=== PATIENT | female | born 1950 | race Caucasian/White ===

== ENCOUNTER 2017-03-23 05:21 | Inpatient (IN) | payer OTHER, BC ==
[2017-02-23 14:33] VITALS: BMI 36.0
[2017-02-23 15:01] LABS: MEAN CORPUSCULAR HGB CONC 34.5 g/dl (32-36); PTT PATIENT 23.6 SECONDS (21.0-31.0)
--- NOTE | 2017-02-23 15:03 | PAT Medication Instructions ---
Service Date Feb 23, 2017. Current Home Medication List Aspirin (Aspirin Ec), 81 MG PO QAM Calcium Carbonate-Cholecalcife (Caltrate 600+D), 1 TAB PO QAM Naproxen (Aleve), 2 MG PO UD PRN for PRN Pravastatin (Pravachol ), 20 MG PO QAM Medication Instructions For Your Scheduled Surgery - Hold the following medications 1week prior to surgery per surgeon's instructions: Naproxen (Aleve), 2 MG PO UD PRN for PRN - Hold the following medications the morning of surgery: Calcium Carbonate-Cholecalcife (Caltrate 600+D), 1 TAB PO QAM - Take the following medications the morning of surgery with a sip of water OTHERWISE NOTHING TO EAT OR DRINK AFTER MIDNIGHT: Pravastatin (Pravachol ), 20 MG PO QAM Aspirin (Aspirin Ec), 81 MG PO QAM If you have any questions please call us at [phone] or [phone] or [phone]
[2017-02-23 15:22] LABS: HEMATOCRIT 42.3 % (37-47); HEMOGLOBIN 14.6 g/dL (12.0-16.0); MEAN CELL VOLUME 86.3 fL (80-100); MEAN CORPUSCULAR HEMOGLOBIN 29.8 pg (25-34); MEAN PLATELET VOLUME 9.7 fL (7.4-10.4); PLATELET COUNT 226 K/uL (130-400); RED CELL DISTRIBUTION WIDTH CV 13.5 % (11.5-14.5); RED CELL DISTRIBUTION WIDTH SD 42.6 fL (36.4-46.3); WHITE BLOOD COUNT 8.71 K/uL (4.8-10.8)
[2017-02-23 15:23] LABS: BASO % 0.6 %; BASO ABS # 0.05 K/uL (0-0.2); EOS ABS # 0.35 K/uL (0-0.5); IG# 0.04 K/uL (0.00-0.02); LYMPH % 23.5 %; LYMPH ABS # 2.05 K/uL (1.2-3.4); MONO % 5.1 %; MONO ABS # 0.44 K/uL (0.11-0.59); NEUT % 66.3 %; NEUT ABS # 5.78 K/uL (1.4-6.5)
--- NOTE | 2017-02-23 15:26 | DIAGNOSTIC IMAGING REPORT ---
CHEST 2 VIEWS ROUTINE HISTORY: 66 years-old Female PAT preoperative exam. No acute chest complaints. COMPARISON: None available TECHNIQUE: PA and lateral views of the chest FINDINGS: Cardiomediastinal and hilar silhouettes are within normal limits. No pneumothorax, pleural effusion, focal airspace consolidation or overt pulmonary edema. Bones of the chest are grossly intact. Degenerative changes are seen within the bilateral shoulders and also within the spine. IMPRESSION: No acute cardiopulmonary process. The above report was generated using voice recognition software. It may contain grammatical, syntax or spelling errors. Electronically signed by: Ankur Holbrook M.D. 02/23/2017 3:25 PM Dictated Date/Time: 02/23/2017 3:24 PM
[2017-02-24 07:00] LABS: HEMOGLOBIN A1C 5.9 % (4.5-5.6)
--- NOTE | 2017-02-25 10:27 | HISTORY & PHYSICAL EXAMINATION ---
DATE OF ADMISSION: 03/23/2017 CHIEF COMPLAINT: Left knee pain. HISTORY OF PRESENT ILLNESS: Dagmar is a 66-year-old female with a 2-year history of left knee pain. The patient rates her pain an 8/10. She has pain with her daily activities. She has limited standing and walking tolerance. Pain is worse with weightbearing. The patient has had injections and NSAIDs over the years with minimal relief. She has failed conservative treatment and is scheduled for left knee replacement. PAST MEDICAL HISTORY: Hypercholesterolemia. She denies heart disease, diabetes or DVT. PAST SURGICAL HISTORY: Bilateral carpal tunnel release in the 90s, right knee arthroscopy. SOCIAL HISTORY: The patient denies alcohol or tobacco use. She lives in a single story home. 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 FAMILY HISTORY: Negative for DVT. MEDICATIONS: Pravastatin 20 mg, aspirin 81 mg, Caltrate 600 +D and Aleve p.r.n. ALLERGIES: None. REVIEW OF SYSTEMS: See HPI. Ten other systems reviewed, all negative. PHYSICAL EXAMINATION: VITAL SIGNS: Height 5 foot 8, weight 204 pounds. BMI is 40. GENERAL: This is a well-developed, well-nourished female who is alert and oriented x3. Mood and affect are appropriate. HEAD, EYES, EARS, NOSE, AND THROAT: Normocephalic, atraumatic. Mucous membranes are moist and intact. NECK: Supple without lymphadenopathy. HEART: Regular rate and rhythm without murmurs, rubs or gallops. LUNGS: Clear to auscultation without wheezes or rhonchi. ABDOMEN: Soft and nontender. Bowel sounds are equal and active. EXTREMITIES: No ecchymosis, redness or warmth. She has some varicosities over the anterior tibia. She has neutral alignment, minimal effusion is noted. Range of motion is from 0-115 degrees with +1 laxity. She is neurovascularly intact with +5/5 strength. X-RAY EXAMINATION: AP and lateral views show joint space narrowing and osteophyte formation. IMPRESSION: Degenerative joint disease, left knee. PLAN: The patient will be admitted for a left total knee arthroplasty. We will plan on aspirin for DVT prophylaxis. The patient is going to have [facility] for home physical therapy. Her PCP is Dr. Devi.
[~2017-03-23] VITALS: Ht 157.5 cm; Wt 91.0 kg
[2017-03-23] VITALS (9 sets, daily range): BP systolic 96–179; BP diastolic 56–90; PULSE 52–76; TEMP 36.4–37.1; O2SAT 95–98; Ht 157.5 cm; Wt 91.0 kg
[~2017-03-23 05:21] MED LIST: ASPI81TA28 PO; CALC-354 PO; NAPR1TAB9 PO; PRAV20TA PO
[2017-03-23] MEDS ORDERED: FAMOTIDINE 20 MG TAB PO SCH (06:00)
[2017-03-23] MEDS ORDERED: DEXAMETHASONE 4 MG TAB PO SCH (06:00)
[2017-03-23] MEDS ORDERED: LACTATED RINGER'S 1000ML 1,000 ML IV SCH (06:00)
[2017-03-23] MEDS ORDERED: CEFAZOLIN 2000MG IV PUSH 10 ML IV SCH (06:00)
[2017-03-23] MEDS ORDERED: METOCLOPRAMIDE HCL 10 MG TAB PO SCH (06:00)
[2017-03-23] MEDS ORDERED: CeleBREX 200 MG CAP PO SCH (06:00)
[2017-03-23] MEDS ORDERED: LACTATED RINGER'S 1000ML 500 ML IV SCH (06:00)
[2017-03-23] MEDS ORDERED: ROPIVACAINE 5MG/ML 30 ML 150 MG, BUPIVACAINE 0.5% MPF INJ 30 ML, EpINEphrine HCL INJ 0.... INFIL SCH ×8 (06:00)
[2017-03-23] MEDS ORDERED: GABAPENTIN 300 MG CAP PO SCH (06:00)
[2017-03-23] MEDS ORDERED: LACTATED RINGER'S 1000ML IV SCH (06:00)
[2017-03-23] MEDS ORDERED: ACETAMINOPHEN 500 MG TAB PO SCH (06:00)
[2017-03-23] MEDS ORDERED: BUPIVACAINE 0.25% 30 ML VIAL ONE (06:17)
[2017-03-23] MEDS ORDERED: BUPIVACAINE 0.5 % 5 MG/1 ML PF 10ML VIAL ONE (06:17)
[2017-03-23] MEDS: TRANEXAMIC ACID INJ 1,000 MG in SYRINGE 0 ML IV SCH ×2 (06:30→07:00)
[2017-03-23] MEDS ORDERED: MIDAZOLAM HCL 1 MG/ML 2ML VIAL ONE (06:50)
[2017-03-23] MEDS ORDERED: PROPOFOL IV EMULSION 10 MG/ML 20 ML VIAL IV ONE (06:52)
[2017-03-23] MEDS ORDERED: ONDANSETRON INJ 2 MG/ML 2 ML VIAL ONE (06:52)
[2017-03-23] MEDS ORDERED: LIDOCAINE HCL 2% 2 ML VIAL (20MG/ML) ONE (06:52)
[2017-03-23] MEDS ORDERED: FENTANYL CITRATE INJ 50 MCG/1 ML 2 ML VIAL ONE (06:52)
[2017-03-23] MEDS ORDERED: ORTHO JOINT ANESTHETIC ONE (06:58)
[2017-03-23] MEDS ORDERED: POVIDONE-IODINE OP SOLN 30 ML BTL ONE (06:59)
[2017-03-23] MEDS ORDERED: BACITRACIN 50000 UNIT VIAL ONE (06:59)
[2017-03-23] MEDS ORDERED: ONDANSETRON INJ 2 MG/ML 2 ML VIAL IV PRN ×2 (07:00→09:15)
[2017-03-23] MEDS ORDERED: EpHEDrine SULFATE INJ 50 MG/ML AMP IV PRN (07:00)
[2017-03-23] MEDS ORDERED: ATROPINE SULFATE 0.1 MG/ML 5ML SYR IV PRN (07:00)
--- NOTE | 2017-03-23 07:13 | History & Physical Bridge Note ---
H&P Re-Evaluation Bridge Note: I have examined the patient, reviewed the History & Physical and in the interval since the performance of the History & Physical I have noted the following changes of clinical significance: No changes noted
--- NOTE | 2017-03-23 08:23 | [facility] Operative Report ---
Operative Report Operative Date Mar 23, 2017. Pre-Operative Diagnosis left knee degenerative joint disease Post-Operative Diagnosis same as pre-operative Procedure(s) Performed Left Total Knee Arthroplasty-cemented utilizing Baum & Nephew journey 2 patient matched total knee arthroplasty size 4 femur 3 tibia 11 Lucy [address] 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 X-rays reveal subchondral sclerosis cystic changes marginal osteophytes joint space loss Specimens Permanent Specime A) Left knee bone and tissue Complication(s) None Disposition Recovery Room / PACU Indications Patient presents severe end-stage TriCor Meldrum degenerative joint disease for left total knee arthroplasty she's failed attempts conservative management including physical therapy anti-inflammatories relative rest activity modifications x-rays reveal some subchondral sclerosis cystic change marginal osteophytes varus alignment bones bone changes Description of Procedure After proper prepping and draping of the left lower extremity anterior midline incision was made over the region of the extensor extensor mechanism after meticulous hemostasis was obtained and maintained in subcutaneous tissues a medial parapatellar incision was made The patella was subluxed lateralward the medial lateral gutter were cleaned from any hypertrophic synovitis and scar tissue of the distal femoral block was placed and the distal femoral osteotomy cut was made subsequently the chamfers anterior and posterior osteotomy cuts were made utilizing the 4-in-1 block the tibia was subsequently subluxed anteriorward medial and ateral meniscal remnants were excised in their entirety remnants of the anterior and posterior cruciate ligaments were excised in their entirety excellent exposure of the proximal tibia was obtained the tibial osteotomy guide was placed on the proximal tibial osteotomy cut was made once again the knee was irrigated with copious amounts of sterile saline solution the patella was subsequently everted lateralward thickened scar tissue around the patella was removed the patella was subsequently cut utilizing a freehand technique and was drilled prepared for final preparation and placement of patella socially flexion-extension gaps were checked and the equal and symmetric trials were placed to the appropriate femoral and tibial trials with poly-spacer being placed for equal flexion and extension gaps and full range of motion including extension to 0 and flexion to 140 the trial components after having been taken to recovery range of motion was subsequently removed meticulous hemostasis was obtained and maintained subsequently a knee block injection of joint cocktail including ropivacaine 0.5% 150 mg. Bupivacaine 0.5 % epinephrine 1-200,030 mL's toradol 30 mg dexamethasone 4 mg ketamine 10 mg clonidine 100 micrograms normal saline solution 30 mg was infiltrated into the soft tissues of the posterior knee medial lateral gutters and periosteal synovium special attention was paid to protect neurovascular structures at all times subsequently trial components having been removed the knee was irrigated with sterile saline solution. debris was removed the proximal tibia was subsequently prepared and was made ready for the placement of the tibial component tibial component was also cemented and tamped into position the femoral component was subsequently placed and cemented in the position the patellar component was subsequently cemented in position because hemostasis once again obtained and maintained wound having been thoroughly irrigated with debridement and debridement lavage was performed as well as a medial parapatellar incision closed with #1 Vicryl in interrupted fashion subcutaneous was closed with #2 Vicryl skin was closed with skin clips. PA-C was necessary for prepping and drapping as well as wound closure of deep fascia Sub cutaneous tissue and skin and was necessary for the case. A sterile compressive dressing was placed patient was taken to recovery in stable condition of report dictated by Antonio I attest to the content of the Intraoperative Record and any orders documented therein. Any exceptions are noted below. I attest to the content of the Intraoperative Record and any orders documented therein. Any exceptions are noted below.
[2017-03-23] MEDS ORDERED: MoRPHine SULFATE 2 MG/ML CARP IV PRN ×2 (09:15→11:15)
[2017-03-23] MEDS ORDERED: TRAMADOL HCL 50 MG TAB PO PRN (09:15)
[2017-03-23] MEDS ORDERED: CEFAZOLIN IV 2,000 MG in DEXTROSE 5% 50ML 50 ML IV SCH (09:15)
[2017-03-23] MEDS ORDERED: BISACODYL 10 MG SUPP PR PRN (09:15)
[2017-03-23] MEDS ORDERED: MAGNESIUM HYDROXIDE SUSP 30 ML UDC PO PRN (09:15)
[2017-03-23] MEDS ORDERED: ZOLPIDEM TARTRATE 5 MG TAB PO PRN (09:15)
[2017-03-23] MEDS ORDERED: KETOROLAC TROMETHAMINE 30 MG/ML VIAL IV. PRN (09:15)
[2017-03-23] MEDS ORDERED: ALUMINUM/MAGNESIUM/SIMETH (MAALOX MAX) 30 ML UDC PO PRN (09:15)
[2017-03-23] MEDS ORDERED: SOD PHOSPHATE/SOD BIPHOSPHATE ENEMA 132 ML BTL PR PRN (09:15)
--- NOTE | 2017-03-23 09:19 | DIAGNOSTIC IMAGING REPORT ---
L KNEE 1 OR 2 VIEWS ROUTINE CLINICAL HISTORY: AP/LATERAL IN PACU LEFT KNEE postoperative evaluation COMPARISON: None. DISCUSSION: Anatomic alignment status post total left knee arthroplasty. Good contact between prosthetic and underlying bone. Surgical drains are in position. Expected soft tissue postoperative change IMPRESSION: Anatomic alignment status post total left knee arthroplasty. The above report was generated using voice recognition software. It may contain grammatical, syntax or spelling errors. Electronically signed by: Yaw Pitts M.D. 03/23/2017 9:18 AM Dictated Date/Time: 03/23/2017 9:18 AM
--- NOTE | 2017-03-23 10:10 | Anesthesiology Progress Note ---
Anesthesia Post Op Note Date & Time Mar 23, 2017 at 10:10 Vital Signs Pain Intensity: 0 Vital Signs Past 12 Hours Date Time Temp Pulse Resp B/P (MAP) Pulse Ox O2 Delivery O2 Flow Rate FiO2 03/23/17 10:00 37.5 65 16 119/59 96 Nasal Cannula 2 03/23/17 09:50 65 16 109/68 96 Nasal Cannula 2 03/23/17 09:40 63 16 114/72 97 Nasal Cannula 2 03/23/17 09:30 69 18 111/61 95 Nasal Cannula 2 03/23/17 09:20 65 18 107/62 95 Nasal Cannula 2 03/23/17 09:10 74 18 102/63 96 Oxymask 10 03/23/17 09:01 36.6 73 16 109/59 96 Oxymask 10 03/23/17 05:52 36.4 76 20 179/90 98 Room Air Notes Mental Status: alert / awake / arousable, participated in evaluation Pt Amnestic to Procedure: Yes Nausea / Vomiting: adequately controlled Pain: adequately controlled Airway Patency, RR, SpO2: stable & adequate BP & HR: stable & adequate Hydration State: stable & adequate Neuraxial Anesthesia: was administered, sensory block is resolving Anesthetic Complications: no major complications apparent
[2017-03-23] MEDS ORDERED: MoRPHine SULFATE 4 MG/ML 1 ML CARP\\VIAL IV PRN (11:15)
[2017-03-23] MEDS ORDERED: MoRPHine SULFATE 10 MG/ML CARP/VIAL IV PRN (11:15)
[2017-03-23] MEDS: D5W AND 1/2NSS + 20MEQ KCL 1,000 ML IV SCH ×2 (11:27→22:04)
[2017-03-23] MEDS: ACETAMINOPHEN 500 MG TAB PO SCH ×2 (13:36→22:05)
[2017-03-23] MEDS: CEFAZOLIN IV 2,000 MG in SYRINGE 0 ML IV SCH ×2 (15:30→23:50)
[2017-03-23] MEDS: ASPIRIN 81 MG ECTAB PO SCH (20:39)
[2017-03-23] MEDS: SENNA 8.6 MG TAB PO SCH (20:39)
[2017-03-23] MEDS: DOCUSATE SODIUM 100 MG CAP PO SCH (20:39)
[2017-03-23] MEDS: OXYCODONE HCL IR 5 MG TAB (IMMEDIATE RELEASE) PO PRN (20:40)
[2017-03-24] VITALS (7 sets, daily range): BP systolic 117–133; BP diastolic 67–82; PULSE 48–66; TEMP 36.4–36.9; O2SAT 96–100
[2017-03-24] MEDS: OXYCODONE HCL IR 5 MG TAB (IMMEDIATE RELEASE) PO PRN ×4 (03:41→21:08)
[2017-03-24] MEDS: ACETAMINOPHEN 500 MG TAB PO SCH ×3 (05:36→21:06)
--- NOTE | 2017-03-24 06:55 | Orthopedic Progress Note ---
Orthopedic Progress Note Date of Service Mar 24, 2017. Subjective Post OP Day: 1 Reports: feeling well, pain controlled w PO medications, Denies: complaints, chest pain, SOB, nausea / vomiting, light headedness, calf pain Objective calves soft nontender, N/V intact, capillary refill less than 2 sec., dressing C /D/I, A&O x3, toes mobile, hemovac drainage (75cc/8 hours) Date Time Temp Pulse Resp B/P (MAP) Pulse Ox O2 Delivery O2 Flow Rate FiO2 03/24/17 03:30 36.9 48 16 117/67 (84) 98 Room Air 03/23/17 23:50 Room Air 03/23/17 23:03 36.5 52 16 103/64 (77) 96 Room Air 03/23/17 19:27 36.4 60 16 124/73 (90) 95 Room Air 03/23/17 15:10 Nasal Cannula 03/23/17 15:10 36.5 66 16 97/65 (76) 95 Room Air 03/23/17 13:26 36.6 72 16 106/68 (81) 98 Nasal Cannula 2.0 03/23/17 12:26 37.1 71 16 96/56 (69) 97 Nasal Cannula 2.0 03/23/17 11:28 36.5 67 16 111/71 (84) 96 Nasal Cannula 2.0 03/23/17 10:59 36.5 70 16 111/73 (86) 95 Nasal Cannula 2.0 03/23/17 10:51 Nasal Cannula 2.0 03/23/17 10:40 96 Nasal Cannula 2.0 03/23/17 10:30 36.7 72 16 114/70 (85) 95 Nasal Cannula 2.0 03/23/17 10:10 37.0 70 16 101/78 96 Nasal Cannula 2 03/23/17 10:00 37.5 65 16 119/59 96 Nasal Cannula 2 03/23/17 09:50 65 16 109/68 96 Nasal Cannula 2 03/23/17 09:40 63 16 114/72 97 Nasal Cannula 2 03/23/17 09:30 69 18 111/61 95 Nasal Cannula 2 03/23/17 09:20 65 18 107/62 95 Nasal Cannula 2 03/23/17 09:10 74 18 102/63 96 Oxymask 10 03/23/17 09:01 36.6 73 16 109/59 96 Oxymask 10 Laboratory Results 24 Hours: Test 03/24/17 04:44 Assessment & Plan Assessment: POD #1 s/p Left TKA -pt/ot -dvt proph with steph/scd/asa -plan for d/c home with HHPT when stable High Cholesterol Discharge Planning Discharge Planning: home with home health DVT Prophylaxis: TEDs, SCDs, ASA Therapy: Physical Therapy
[2017-03-24 07:13] LABS: HEMATOCRIT 36.6 % (37-47); HEMOGLOBIN 12.4 g/dL (12.0-16.0); MEAN CELL VOLUME 86.9 fL (80-100); MEAN CORPUSCULAR HEMOGLOBIN 29.5 pg (25-34); MEAN CORPUSCULAR HGB CONC 33.9 g/dl (32-36); MEAN PLATELET VOLUME 9.5 fL (7.4-10.4); PLATELET COUNT 198 K/uL (130-400); RED CELL DISTRIBUTION WIDTH CV 13.5 % (11.5-14.5); RED CELL DISTRIBUTION WIDTH SD 42.7 fL (36.4-46.3); WHITE BLOOD COUNT 16.67 K/uL (4.8-10.8)
[2017-03-24] MEDS: ASPIRIN 81 MG ECTAB PO SCH ×2 (07:13→21:07)
[2017-03-24] MEDS: PRAVASTATIN SOD 20 MG TAB PO SCH (07:13)
[2017-03-24] MEDS: D5W AND 1/2NSS + 20MEQ KCL 1,000 ML IV SCH (07:13)
[2017-03-24] MEDS: CALCIUM 600MG + VIT D 400 IU TAB PO SCH (07:13)
[2017-03-24] MEDS: MULTIVITAMIN TAB PO SCH (07:13)
[2017-03-24] MEDS: DOCUSATE SODIUM 100 MG CAP PO SCH ×2 (07:14→21:06)
[2017-03-24] MEDS: PANTOprazole SOD 40 MG TAB PO SCH (07:14)
[2017-03-24 07:42] LABS: CALCIUM 8.4 mg/dl (8.5-10.1); CREATININE 0.83 mg/dl (0.60-1.20)
--- NOTE | 2017-03-24 09:09 | Anesthesiology Progress Note ---
Anesthesia Post Op Note Date & Time Mar 24, 2017 at 09:09 Vital Signs Pain Intensity: 0.0 Vital Signs Past 12 Hours Date Time Temp Pulse Resp B/P (MAP) Pulse Ox O2 Delivery O2 Flow Rate FiO2 03/24/17 07:50 100 Room Air 03/24/17 07:46 36.4 53 16 124/78 (93) 100 Room Air 03/24/17 07:38 Room Air 03/24/17 03:30 36.9 48 16 117/67 (84) 98 Room Air 03/23/17 23:50 Room Air 03/23/17 23:03 36.5 52 16 103/64 (77) 96 Room Air Notes Mental Status: alert / awake / arousable, participated in evaluation Pt Amnestic to Procedure: Yes Nausea / Vomiting: adequately controlled Pain: adequately controlled Airway Patency, RR, SpO2: stable & adequate BP & HR: stable & adequate Hydration State: stable & adequate Neuraxial Anesthesia: sensory block resolved Anesthetic Complications: no major complications apparent
--- NOTE | 2017-03-24 15:15 | Discharge Instructions ---
Discharge Instructions Date of Service Mar 24, 2017. Admission Reason for Admission: Left Knee Osteoarthritis Discharge Discharge Diagnosis / Problem: left total knee replacement Discharge Goals Goal(s): Decrease discomfort, Improve function, Increase independence Activity Recommendations Activity Limitations: as noted below Weightbearing Status: Left weightbearing (as tolerated) . Instructions / Follow-Up Instructions / Follow-Up ACTIVITY RECOMMENDATIONS: SELF CARE INSTRUCTIONS AFTER TOTAL KNEE REPLACEMENT A. You may need to continue a physical therapy program after discharge from the hospital. There are several options available to you. Your doctor will assist you in selecting the best one for you. 1. An out-patient facility 2 to 3 times a week for therapy or home therapy. 2. Continue working on all exercises taught to you in the hospital. Your goals should be to increase bending of your knee to 90 degrees and beyond and to fully straighten your knee. B. You may progress at your own pace from walking with a walker or crutches to a cane; then to no assistive devices. C. Make walking a part of your daily routine. Be up as much as comfortable with rest periods throughout the day. Rest with leg elevation is very important. Use the ice wrap frequently for the first 3-4 weeks. D. There are no restrictions on activities. 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 E. Wear the long elastic stockings (CELESTE hose) 20 hours a day for 2 weeks after surgery. They can be removed several times a day for laundering and for a bath. F. You may shower, no tub baths until cleared by your doctor. SPECIAL CARE INSTRUCTIONS: VERY IMPORTANT TO READ AND REVIEW A. There are a few signs you need to watch for after you are home. Call [facility] if you notice any of the followin. Increased severe knee pain. Some pain is expected especially when you exercise. 2. Increased swelling in your leg or knee; pain or swelling of the calf muscle in either lower leg. 3. Any fluid drainage from the incision. 4. Shortness of breath or chest pain. B. Please call [facility] at if you have any concerns or questions about your operation or recovery. The doctor or his nurse will return your call promptly. C. You must take antibiotics before dental work, bladder, bowel or other surgery. Your doctor will provide you with a permanent care to carry describing this precaution. IMPORTANT: * REMEMBER TO TAKE ASPIRIN, 81 MG, TWICE DAILY FOR 4 WEEKS UNLESS OTHERWISE DIRECTED. THIS IS YOUR BLOOD THINNER. * HIGH RISK PATIENTS MAY BE PRESCRIBED A STRONGER BLOOD THINNER. THIS WILL BE PROVIDED AT DISCHARGE. * CALL IF INCREASED PAIN, REDNESS, DRAINAGE OR FEVER GREATER THAT 101. * WEAR CELESTE HOSE 20 HOURS PER DAY FOR 2 WEEKS. * DERMABOND Prineo- This is a mesh tape dressing that is covered with glue. It should remain in place until the incision is properly healed, usually 10-14 days. This dressing is designed to naturally slough off. You may trim the excess mesh tape as it peels off. Incision may be briefly wet in a shower. Dry immediately by blotting with a clean, dry towel. Do not bath or swim until instructed by your doctor. Do not scratch, rub, or pick at the dressing. Do not apply any topical ointments or lotions until dressing is completely removed and/or instructed by your doctor. There may be a small piece of suture material at one end of your incision. Do not pull or trim this. If it is bothersome or catching on clothing, you may cover it with a band-aid. FOLLOW UP VISIT: If appointment is not already scheduled: Please call [facility] to make a follow-up appointment for 2 weeks after your surgery at . Current Hospital Diet Patient's current hospital diet: Regular Diet Discharge Diet Recommended Diet: Regular Diet Procedures Procedures Performed: Left Total Knee Arthroplasty-cemented utilizing Baum & Nephew journey 2 patient matched total knee arthroplasty size 4 femur 3 tibia 11 Lucy 32 oval patella Pending Studies Studies pending at discharge: no Laboratory Results Hemoglobin A1c Test 02/23/17 14:17 Range/Units Estimated Average Glucose 123 mg/dl Hemoglobin A1c 5.9 H 4.5-5.6 % Medical Emergencies . Who to Call and When: Medical Emergencies: If at any time you feel your situation is an emergency, please call 911 immediately. . Non-Emergent Contact Non-Emergency issues call your: Primary Care Provider, Surgeon . "Provider Documentation" section prepared by Yaw Reeves. . VTE Core Measure Inpt VTE Proph given/why not?: Other Anticoagulation (ASA 81mg po bid x 1 month ), T.E.DVincent Stockings, SCD's [place] Drug Monitoring Program Search Results: patient reviewed within database, no issues identified
[2017-03-24] MEDS: SENNA 8.6 MG TAB PO SCH (21:06)
[2017-03-24] MEDS: CeleBREX 200 MG CAP PO SCH (21:06)
[2017-03-25] MEDS: OXYCODONE HCL IR 5 MG TAB (IMMEDIATE RELEASE) PO PRN ×2 (01:56→07:23)
[2017-03-25] MEDS: ACETAMINOPHEN 500 MG TAB PO SCH (05:27)
--- NOTE | 2017-03-25 06:54 | Orthopedic Progress Note ---
Orthopedic Progress Note Date of Service Mar 25, 2017. Subjective Post OP Day: 2 Reports: feeling well, pain controlled w PO medications, Denies: complaints, chest pain, SOB, nausea / vomiting, light headedness, calf pain Objective calves soft nontender, N/V intact, capillary refill less than 2 sec., incision C /D/I, A&O x3, toes mobile Date Time Temp Pulse Resp B/P (MAP) Pulse Ox O2 Delivery O2 Flow Rate FiO2 03/24/17 23:45 36.6 62 18 122/75 (91) 96 Room Air 03/24/17 19:00 Room Air 03/24/17 15:22 36.6 59 18 131/72 (91) 98 Room Air 03/24/17 11:33 36.5 61 20 124/82 (96) 99 Room Air 03/24/17 10:05 66 99 03/24/17 07:50 100 Room Air 03/24/17 07:46 36.4 53 16 124/78 (93) 100 Room Air 03/24/17 07:38 Room Air Assessment & Plan Assessment: POD #2 s/p Left TKA -pt/ot -dvt proph with steph/scd/asa -plan for d/c home with HHPT when stable, likely after PT today High Cholesterol Discharge Planning Discharge Planning: home with home health DVT Prophylaxis: TEDs, SCDs, ASA Therapy: Physical Therapy
[2017-03-25] MEDS: CALCIUM 600MG + VIT D 400 IU TAB PO SCH (07:19)
[2017-03-25] MEDS: DOCUSATE SODIUM 100 MG CAP PO SCH (07:19)
[2017-03-25] MEDS: PANTOprazole SOD 40 MG TAB PO SCH (07:19)
[2017-03-25] MEDS: PRAVASTATIN SOD 20 MG TAB PO SCH (07:19)
[2017-03-25] MEDS: CeleBREX 200 MG CAP PO SCH (07:19)
[2017-03-25] MEDS: ASPIRIN 81 MG ECTAB PO SCH (07:19)
[2017-03-25] MEDS: MULTIVITAMIN TAB PO SCH (07:19)
[2017-03-25] MEDS ORDERED: ONDA8TAB6 PO (07:21)
[2017-03-25] MEDS ORDERED: CLB200 PO (07:21)
[2017-03-25] MEDS ORDERED: CLC100 PO (07:21)
[2017-03-25] MEDS ORDERED: ULT50X PO (07:21)
[2017-03-25] MEDS ORDERED: ASPEC81 PO (07:21)
[2017-03-25] MEDS ORDERED: ACET-24 PO (07:21)
[2017-03-25] MEDS ORDERED: RXC5 PO (07:21)
[2017-03-25 07:25] VITALS: BP 119/80; PULSE 59; TEMP 36.4; O2SAT 98
[2017-03-25 10:25] VITALS: BP 119/80; PULSE 59; TEMP 36.4; O2SAT 98
--- NOTE | 2017-03-25 11:19 | Discharge Summary ---
Orthopedic Discharge Summary Admission Date/Reason Mar 23, 2017 at 07:00 Left Knee Osteoarthritis. Discharge Date/Disposition Mar 25, 2017 Home with services Diagnosis Principal Diagnosis: left knee osteoarthritis Procedure(s) Performed Left Total Knee Arthroplasty-cemented utilizing [employer] journey 2 patient matched total knee arthroplasty size 4 femur 3 tibia 11 Lucy 32 oval patella Consultations NONE Medication Reconciliation New Medications: Ondansetron Hcl (Zofran) 8 Mg Tab 8 MG PO Q8 PRN for Nausea, #20 TAB Acetaminophen (Sb Non-Aspirin Extra Stre) 500 Mg Tab 1000 MG PO Q8H, #63 TAB Aspirin (Aspirin EC Low Dose) 81 Mg Ectab 81 MG PO BID for 30 Days, #60 TAB Celecoxib (Celebrex) 200 Mg Cap 200 MG PO BID for 30 Days, #60 CAP Docusate Sodium (Docusate Sodium) 100 Mg Cap 100 MG PO BID for 10 Days, #20 CAP Oxycodone HCl (Oxycodone HCl) 5 Mg Tab 5-10 MG PO Q4H PRN for Pain, #60 TAB Tramadol HCl (Tramadol HCl) 50 Mg Tab 50-100 MG PO Q4H PRN for Pain, #60 TAB Continued Medications: Calcium Carbonate-Cholecalcife (Caltrate 600+D) 1 Tab Tab 1 TAB PO QAM Pravastatin (Pravachol ) 20 Mg Tab 20 MG PO QAM, TAB Discontinued Medications: Aspirin (Aspirin Ec) 81 Mg Tab 81 MG PO QAM Naproxen (Aleve) 220 Mg Tab 2 MG PO UD PRN for PRN, TAB Admission Physical Exam As per Admitting History & Physical. Hospital Course Patient was a same day admission after undergoing a successful left TKA. She tolerated the procedure well. Post-operatively, her activity was progressed and well tolerated. Please refer to daily progress notes and PT notes for complete details. After exam on 03/25/17, patient felt to be stable for discharge home with HHPT. Patient will f/u in the office in 2 weeks for further evaluation including x-rays and incision check, sooner if having any issues or concerns. Below are pertinent labs/studies during their hospital stay: Last Vital Signs Documentation Date Time Temp Pulse Resp B/P (MAP) Pulse Ox O2 Delivery O2 Flow Rate FiO2 03/25/17 10:25 36.4 59 19 98 Room Air 03/25/17 07:25 119/80 (93) 03/23/17 13:26 2.0 Last Resulted CBC 03/24/17 06:51 Last Resulted BMP 03/24/17 06:51 Discharge Instructions ACTIVITY RECOMMENDATIONS: SELF CARE INSTRUCTIONS AFTER TOTAL KNEE REPLACEMENT A. You may need to continue a physical therapy program after discharge from the hospital. There are several options available to you. Your doctor will assist you in selecting the best one for you. 1. An out-patient facility 2 to 3 times a week for therapy or home therapy. 2. Continue working on all exercises taught to you in the hospital. Your goals should be to increase bending of your knee to 90 degrees and beyond and to fully straighten your knee. B. You may progress at your own pace from walking with a walker or crutches to a cane; then to no assistive devices. C. Make walking a part of your daily routine. Be up as much as comfortable with rest periods throughout the day. Rest with leg elevation is very important. Use the ice wrap frequently for the first 3-4 weeks. D. There are no restrictions on activities. You may ride in a car, shop, participate in dairy tester and all social activities. E. Wear the long elastic stockings (CELESTE hose) 20 hours a day for 2 weeks after surgery. They can be removed several times a day for laundering and for a bath. F. You may shower, no tub baths until cleared by your doctor. SPECIAL CARE INSTRUCTIONS: VERY IMPORTANT TO READ AND REVIEW A. There are a few signs you need to watch for after you are home. Call [facility] if you notice any of the followin. Increased severe knee pain. Some pain is expected especially when you exercise. 2. Increased swelling in your leg or knee; pain or swelling of the calf muscle in either lower leg. 3. Any fluid drainage from the incision. 4. Shortness of breath or chest pain. B. Please call [facility] [place] at if you have any concerns or questions about your operation or recovery. The doctor or his nurse will return your call promptly. C. You must take antibiotics before dental work, bladder, bowel or other surgery. Your doctor will provide you with a permanent care to carry describing this precaution. IMPORTANT: * REMEMBER TO TAKE ASPIRIN, 81 MG, TWICE DAILY FOR 4 WEEKS UNLESS OTHERWISE DIRECTED. THIS IS YOUR BLOOD THINNER. * HIGH RISK PATIENTS MAY BE PRESCRIBED A STRONGER BLOOD THINNER. THIS WILL BE PROVIDED AT DISCHARGE. * CALL IF INCREASED PAIN, REDNESS, DRAINAGE OR FEVER GREATER THAT 101. * WEAR CELESTE HOSE 20 HOURS PER DAY FOR 2 WEEKS. * DERMABOND Prineo- This is a mesh tape dressing that is covered with glue. It should remain in place until the incision is properly healed, usually 10-14 days. This dressing is designed to naturally slough off. You may trim the excess mesh tape as it peels off. Incision may be briefly wet in a shower. Dry immediately by blotting with a clean, dry towel. Do not bath or swim until instructed by your doctor. Do not scratch, rub, or pick at the dressing. Do not apply any topical ointments or lotions until dressing is completely removed and/or instructed by your doctor. There may be a small piece of suture material at one end of your incision. Do not pull or trim this. If it is bothersome or catching on clothing, you may cover it with a band-aid. FOLLOW UP VISIT: If appointment is not already scheduled: Please call [facility] to make a follow-up appointment for 2 weeks after your surgery at .
[2017-03-25 11:29] VITALS: BP 119/80; PULSE 59; O2SAT 98
== END 2017-03-25 13:32 | disposition home health service (06) | DRG 470 ==
LOC: C.ACU 05:21 → C.3E 07:00 → ENRESERV 09:33
PROVIDERS: ADMIT Orthopaedic Surgery; ATTEND Orthopaedic Surgery
PROC: 0SRD0J9 Replacement of Left Knee Joint with Synthetic Substitute, Cemented, Open Approach (ICD-10-PCS; principal; 2017-03-23 07:15)
DX: M17.12 Unilateral primary osteoarthritis, left knee (principal); E78.00 Pure hypercholesterolemia, unspecified; Z79.82 Long term (current) use of aspirin; Z79.899 Other long term (current) drug therapy

== ENCOUNTER 2023-06-01 05:07 | Observation (INO) ==
--- NOTE | 2023-05-11 08:46 | History & Physical Report ---
Date of Service May 11, 2023 date of surgery: 06/01/23 Procedure: Right Total Knee Arthroplasty Surgeon: Bob Alvarez DO Assessment & Plan (1) Arthritis of right knee: Plan: Further care discussed with patient and at this point in time has failed cons ervative measures and would like to proceed with a right total knee replacement. Plan on discharge will be home with home health physical therapy. DVT prophylaxiswith TEDs, SCDs and will also place on aspirin 81 mg p.o. b.i.d. for a month postop. Patient will have follow up appointment in our office two weeks post op for staple/suture removal and re-evaluation. Patient otherwise has no other questions or concerns. The risks and benefits have been discussed including, but not limited to, risk of infection, nerve injury, stiffness, loss of motion, failure to improve, etc. Reasonable outcomes and options of treatment were discussed. An explanation of appropriate alternatives to the procedure that may be advantageous were discussed and their risks and benefits, as well as the risks and benefits of not proceeding with treatment. I offered to answer any additional inquiries concerning the treatment involved. All the patient's questions were answered. The patient is agreeable, understanding of the treatment plan and alternatives, and wishes to proceed with the treatment plan. Please note the above document was generated using voice recognition software. It may contain grammatical, syntax or spelling errors. Any formal questions or concerns about the content, text or information contained within the body of this dictation should be directly addressed to the provider for clarification History of Present Illness Chief Complaint: Right knee pain Primary Care Provider: Ron Devi DO Dagmar is a 72-year-old female who presented for preop evaluation prior to upcoming right total knee arthroplasty. She has several year history of right knee pain which is gradually worsened and is now affecting her daily activities including walking standing using stairs. She has tried previous injections including corticosteroid and viscosupplementation with minimal improvement. She is tried oral anti-inflammatories and Tylenol as well. At this point she has failed conservative measures and wishes to proceed with a right total knee replacement Allergies Allergy/AdvReac Type Severity Reaction Status Date / Time No Known Allergies Allergy Verified 05/06/23 07:43 Home Medications Medication Instructions Recorded Confirmed Type aspirin 81 mg capsule 81 mg PO QAM 05/06/23 05/06/23 History atorvastatin 20 mg tablet 20 mg PO QAM 05/06/23 05/06/23 History calcium carbonate 600 mg calcium 600 mg PO QAM 05/06/23 05/06/23 History (1,500 mg) tablet Past Med/Surg History Medical History Osteoarthritis Hyperlipidemia Surgical History History of colonoscopy History of bilateral tubal ligation History of carpal tunnel release bilateral S/P total knee arthroplasty left Family History Other No family history of adverse response to anesthesia Social History Smoking Status: Never smoker Second Hand Exposure: No; Do You Dip or Chew Tobacco: No; Tobacco Cessation Education Requested by Patient: No Hx Alcohol Use: No Hx Substance Use: No Preferred Language: Sinhala Communication Ability: Effective Superintendent Quarry Required: No Beliefs That Will Affect Care: None Current Living Situation: Alone Other Information That Helps Us Care for You: No Feels Safe at Home: Yes Safety Concerns: Feels Safe At This Time Assistive Devices: Glasses and Hearing Aid - Bilateral Review of Systems Review of Systems: All systems reviewed & are unremarkable except as noted in HPI & below Constitutional: no fever, no chills and no sweats Respiratory: no cough and no dyspnea Cardiovascular: no chest pain, no dyspnea and no orthopnea Gastrointestinal: no abdominal pain, no nausea and no vomiting Musculoskeletal: as per Subjective / HPI Physical Exam Physical Exam: HT: 5ft 2in WT: 99.79kg Constitutional: WD/WN, vitals as above no acute distress Respiratory: normal respiratory effort, lungs clear to auscultation no respiratory distress, no labored breathing and does not use accessory muscles Cardiovascular: RRR, no murmur, no edema Gastrointestinal (Abdomen): normal bowel sounds, soft, nontender, no hepatosplenomegaly Musculoskeletal: Knee: + knee abnormal to inspection (RIGHT KNEE), + effusion (+1 effusion), + limited ROM of knee (ROM 0/3/110), + knee ROM with crepitation, + joint line tenderness (medial joint line) and + John's sign positive; no deformity, no skin erythema, no ecchymosis, no valgus laxity, no varus laxity, anterior drawer test negative, Laura's sign negative and pivot shift test negative Results & Data Results & Data Diagnostic Findings Right Knee X-ray: Right knee series showing advanced degenerative changes to the right knee, narrowing of the medial compartment and patello-femoral joint with patellar spurring noted, findings showing joint space narrowing of the medial compartment and patello-femoral joint, osteophyte formation and subchondral sclerosis noted. overall varus alignment. no acute bony pathology noted.
--- NOTE | 2023-05-11 16:10 | PAT Medication Instructions ---
Medication Instructions Date of Service May 11, 2023 Home Medications aspirin 81 mg capsule 81 mg PO QAM atorvastatin 20 mg tablet 20 mg PO QAM calcium carbonate 600 mg calcium (1,500 mg) tablet 600 mg PO QAM ASK your prescriber and surgeon aspirin 81 mg capsule 81 mg PO QAM DO NOT take the morning of surgery calcium carbonate 600 mg calcium (1,500 mg) tablet 600 mg PO QAM Take morning of surgery With a small sip of water, OTHERWISE NOTHING TO EAT OR DRINK AFTER MIDNIGHT: atorvastatin 20 mg tablet 20 mg PO QAM Other Notes If you have any questions please call us at [phone] or [phone] or [phone] or [phone]
--- NOTE | 2023-05-17 11:59 | Anesthesiology Consultation ---
Date of Service May 17, 2023 Assessment & Plan (1) Encounter for pre-operative examination: Chart Review Chart Review: Acceptable Risk for Surgery (pending PCP clearance ) and Patient seen in Pre Admission Testing - Awaiting PCP clearance 05/18/23- S (Dr Maxwell) - please send preop testing for PCP review Pt currently scheduled as 23 hours observation. If surgeon decides to change patient to Same Day Joint, patient would be acceptable risk for TKA, pending patient is motivated, has good support and surgeon's office completes Same Day Joint Program preop requirements. Per PAT appt on 05/17/23, no recent illness/disease exposures, illness related symptoms, or recent illness/disease positive tests. Will leave to surgeon's discretion if preop Covid testing needed Left TKA 03/23/17= Done under SAB at L3-4 with 1 attempt Teaching & Discussion Pre-Anesthesia Teaching/Discussion Notes: Instructed NPO after midnight before surgery,except medications with 15 cc of water. Medication instructions provided according to the PAT guidelines. History Surgery Operation Date: 06/01/23 07:15 Proposed Procedures p Right Total Knee Arthroplasty - Bob Alvarez DO Height/Weight Height: 5 ft 2 in Weight: 101.5 kg Allergies Allergy/AdvReac Type Severity Reaction Status Date / Time No Known Allergies Allergy Verified 05/06/23 07:43 Medications Home Medications Medication Instructions Recorded Confirmed Last Taken aspirin 81 mg capsule 81 mg PO QAM 05/06/23 05/06/23 Unknown atorvastatin 20 mg tablet 20 mg PO QAM 05/06/23 05/06/23 Unknown calcium carbonate 600 mg calcium 600 mg PO QAM 05/06/23 05/06/23 Unknown (1,500 mg) tablet Past Medical History Medical History (Updated 05/17/23 @ 15:57 by Susan Cox PA-C) Hyperlipidemia Osteoarthritis Prediabetes Presumed- Hgb A1C 6.2 at PAT appt 05/17/23 Exercise / Class Metabolic Activity II 4-5 Yardwork/Stairs/Walk up hill (one flight of stairs- no chest pain or SOB ) Past Family History Family History Other No family history of adverse response to anesthesia Past Surgical History Surgical History History of bilateral tubal ligation History of carpal tunnel release bilateral History of colonoscopy S/P total knee arthroplasty left Past Anesthesia History No Hx of Anesthesia Complications and No Family Hx of Anesthesia Complications History of PONV No Hx of PONV and No Hx of Motion Sickness Social History Smoking Status: Never smoker Do You Dip or Chew Tobacco: No Hx Alcohol Use: No Hx Substance Use: No substance use type: does not use Review of Systems Patient denies chest pain, shortness of breath, dyspnea on exertion, reflux, cough, wheezing, palpitations. No hx of seizures, stroke, WI, apnea/snoring. No hx of blood clots or blood transfusions Physical Exam Vital Signs VITALS BP 152/91 P 72 TEMP 97.9 SP02 96% RESP 16 Constitutional no acute distress ENMT Mouth: no TMJ clicking Thyromental Distance: > or= 3.5 Finger Breadths (3.5) Mallampati Class: III Capped top front teeth Neck + limited neck extension (mild) Respiratory normal respiratory effort; no respiratory distress Auscultation: lungs clear to auscultation bilaterally; no wheezes Cardiovascular Rate/Rhythm: regular rate and regular rhythm Heart Sounds: no murmur Vessels: no carotid bruit Heart sounds mildly diminished throughout Musculoskeletal Spine: no pain with cervical ROM Extremities: extremities normal to inspection Psychiatric Orientation: alert Lab Results Anesthesia Preop Results Results Anesthesia Widget: WBC 8.76 K/ul (4.8-10.8) 05/17/23 Hgb 13.6 g/dl (12.0-16.0) 05/17/23 Hct 40.1 % (37.0-47.0) 05/17/23 Plt 233 K/uL (130-400) 05/17/23 Na 140 mmol/L (136-145) 05/17/23 K 4.0 mmol/L (3.5-5.1) 05/17/23 Cl 107 mmol/L (98-107) 05/17/23 CO2 25 mmol/L (21-32) 05/17/23 BUN 21 mg/dl (6-23) 05/17/23 Creat 0.70 mg/dl (0.6-1.2) 05/17/23 Glucose Level 98 mg/dl (70-99(Fasting)) 05/17/23 PT 11.4 Seconds (9.0-12.0) 05/17/23 PTT 26 Seconds (21-31) 05/17/23 INR 1.0 (0.9-1.1) 05/17/23 HA1c 6.2 % (4.5-5.6) H 05/17/23 Urine Color Yellow 05/17/23 Urine Appearance Clear (Clear) 05/17/23 Urine pH 6.0 (4.5-7.5) 05/17/23 Urine Specific [place] 1.020 (1.000-1.030) 05/17/23 Urine Protein Negative (Negative) 05/17/23 Urine Glucose (UA) Negative (Negative) 05/17/23 Urine Ketones Negative (Negative) 05/17/23 Urine Blood Negative (Negative) 05/17/23 Urine Nitrite Negative (Negative) 05/17/23 Urine Bilirubin Negative (Negative) 05/17/23 Urine Urobilinogen Negative (Negative) 05/17/23 Urine Leukocyte Esterase Negative (Negative) 05/17/23 Blood Type A Negative 05/17/23 Antibody Screen NEGATIVE 05/17/23 Testing Electrocardiogram Date: 05/17/23 Findings: + no change from (Feb 23, 2017 per cardio ) SR with 1st degree AVB at 72bpm Chest X-Ray Date: 05/17/23 Findings: + NAD
--- OUTSIDE RECORDS SUMMARY | 2023-06-01 05:13 | External Medical Summary | Summary of Care ---
Author Name Unknown Organization [facility] Address [address] [place] [address] Phone [phone] Care Team Providers [employer] Name Role Phone Dakotah Ragsdale MD Primary Care Provider + Encounter Details Date Type Department Care Team (Late st Contact Info) Description 05/19/2023 Orders Only General Internal Medicine [facility] [address] [facility] [place] [id number] Dakotah Ragsdale MD [address] [place] [address] Allergies No known active allergiesdocumented as of this encounter (statuses as of 05/19/2023) Medications Medication Sig Dispensed Refills Start Date End Date Status ASPIRIN 81 MG PO TABS one pill each day 0 Active Calcium-Vitamin D 500-125 MG-UNIT TABS Take 1 Tab by mouth daily. 0 Active amoxicillin (AMOXIL) 500 MG Capsule take 4 tablets by mouth 1 hour prior to procedure 0 04/07/2017 Active Atorvastatin Calcium 20 MG Oral Tablet (Lipitor)Indications :Hyperlipidemia with target LDL less than 100 Take 1 Tablet by mouth in the morning. 90 Tablet 3 08/25/2022 Active documented as of this encounter (statuses as of 05/19/2023) Active Problems Problem Noted Date Diagnosed Date Obesity, Class III, BMI 40-49.9 (morbid obesity) 08/21/2021 Prediabetes 03/25/2020 Overview: Per Prediabetes protocol Status post total left knee replacement 04/19/19 18 Mixed hyperlipidemia 09/08/2012 documented as of this encounter (statuses as of 05/19/2023) Resolved Problems Problem Noted Date Diagnosed Date Resolved Date Status post total bilateral knee replacement 8 05/18/2017 Osteoarthritis of left knee 02/24/2017 04/06/2023 Benign neoplasm of colon 08/12/2006 Overview: repeat colonoscopy in 5 years documented as of this encounter (statuses as of 05/19/2023) Immunizations Name Administration Dates Next Due Pneumococcal Conjugate Vacc, 13 Valent (Prevnar) 10/11/2018 Pneumococcal Polysaccharide PPV23 (Pneumovax) Season Influenza, Quad, PF, Adjuvanted, 65+ Yrs, IM (FLUAD) 12/26/2019 Seasonal Influenza, PF, 6 M & above, IM , (FluLaval or Fluzone) 11/22/2017,12/14/2016 Seasonal Influenza, Quadrivalent Hd (Fluzone Hd) 02/23/2022,02/19/2021 Seasonal Influenza, Quadrivalent, No Preserve, I M 12/18/2014 Seasonal Influenza, Split, IIV3, With Preserve, Inj 11/20/2013 Seasonal Influenza, Trivalent, Adjuvanted, 65+ y rs 02/14/2019 TDAP (age 10 and older)(Boostrix) 03/11/2019 TDAP (age 11 and older)(Adacel) 01/24/2009 Varicella Zoster Vaccine (Adult) 09/18/2013 Zoster Vaccine Recombinant (Shingrix) 10/11/2018 ,07/12/2018 documented as of this encounter Social History Tobacco Use Types Packs/Day Years Used Date Smoking Tobacco: Never Smokeless Tobacco: Never Alcohol Use Standard Drinks/Week Comments No 0 (1 standard drink = 0.6 oz pur e alcohol) PHQ-2 Answer Date Recorded PHQ Adult Total Score 0 08/25/2022 Hunger Vital Sign Answer Date Recorded Worried About Running Out of Food in the Last Ye ar Never true 02/19/2020 Ran Out of Food in the Last Year Never true 02/19/2020 Sex and Gender Information Value Date Recorded Sex Assigned at Female 02/14/2019 8:28 AM EST Gender Identity Female 02/14/2019 8:28 AM EST Sexual Orientation Straight 02/14/2019 8: 28 AM EST Job Start Date Occupation Industry Not on file Not on file Not on file documented as of this encounter Plan of Treatment Upcoming Encounters Date Type Department Care Team (Late st Contact Info) Description 10/05/2023 2:20 PM EDT Office Visit General Internal Medicine [facility] [address] [place] [address] Dakotah Ragsdale MD [address] [facility] [place] [id number] Scheduled Procedures Name Priority Associated Diagnoses Date/Ti me COLONOSCOPY FLEXIBLE PROXIMAL DIAGNOSTIC Recall History of colon polyps Health Maintenance Due Date Last Done Comments COLONOSCOPY-EVERY 5 YRS AGES 18-100 01/18/2022 01/18/2017, 01/18/2017, 12/16/2011, Additional history exists COVID-19 Vaccine ( season) 2022 Influenza Vaccine (FLU shot) (#1) 2022 02/23/2022, 02/19/2021, 12/26/2019, Additional history exists Depression Screening 08/26/2023 08/25/2022 DXA Scan 01/12/2024 01/11/2017 HbA1c 04/06/2024 05/17/2023, 03/16, 08/21/2022, Additional history exists Mammogram 04/13/2024 04/13/2023, 03/15, 03/05/2020, Additional history exists Lipid Panel 04/06/2028 04/06/2023, 0611/2022, 02/23/2022, Additional history exists DTaP,Tdap,and Td Vaccines (3 - Td or Tdap) 03/11/2029 03/11/2019, 01/24/2009 Pneumococcal Vaccine: 65+ Years Completed 10/11/2018, 12/14/2016 Zoster Vaccines Completed 10/11/2018, 06/15, 09/18/2013 GARDASIL-HPV IMMUNIZATION SERIES Aged Out No longer eligible based on patient's age to complete this topic Hepatitis B Aged Out No longer eligi ble based on patient's age to complete this topic MENINGOCOCCAL (MENACTRA/MENVEO) Aged Out No longer eligible based on patient's age to complete this topic documented as of this encounter Medical Devices Not on filedocumented as of this encounter Procedures Procedure Name Priority Date/Time Associated Diagnosis Comments XR CHEST 2 VIEWS Routine 05/17/2023 CHEMISTRY-OUTSIDE Routine 05/17/2023 documented in this encounter Results * (ABNORMAL) CHEMISTRY-OUTSIDE (05/17/2023) Not all results display below - see scan for full detail SCAN INCLUDES PRE ADMISSION: PT INR, PTT, BMP, ALB, HA1C, UA, CBCD OUTSIDE LAB (SEE SCANNED REPORT) CREATININE-OUTSI DE LAB 0.70 0.6 - 1.2 MG/DL OUTSIDE LAB (SEE SCANNED REPORT) EGFR-OUTSIDE LAB 67.2 ML/MIN OUT SIDE LAB (SEE SCANNED REPORT) POTASSIUM-OUTSID E LAB 4.0 3.5 - 5.1 MMOL/L OUTSIDE LAB (SEE SCANNED REPORT) GLUCOSE-OUTSIDE LAB 98 70 - 99 MG/DL OUTSIDE LAB (SEE SCANNED REPORT) HOURS FASTING OUTSID E LAB (SEE SCANNED REPORT) TRIGLYCERIDES-OU TSIDE LAB OUTSIDE LAB (SEE SCANNED REPORT) CHOLESTEROL-OUTS [facility] OUTSIDE LAB (SEE SCANNED REPORT) HDL-OUTSIDE LAB OUTS [facility] (SEE SCANNED REPORT) CHOL/HDL RATIO-OUTSIDE LAB OUTSIDE LAB (SEE SCANNED REPORT) LDL (CALCULATED)-OUT SIDE LAB OUTSIDE LAB (SEE SCANNED REPORT) LDL (DIRECT MEASURE)-OUTSIDE LAB OUTSIDE LAB (SEE SCANNED REPORT) HEMOGLOBIN, Q1D-RIDTFZH LAB 6.2(A) 4.5 - 5.6 % OUTSIDE LAB (SEE SCANNED REPORT) PHOSPHORUS-OUTSI DE LAB OUTSIDE LAB (SEE SCANNED REPORT) PTH-OUTSIDE LAB OUTS [facility] (SEE SCANNED REPORT) MICROALBUMIN RATIO-OUTSIDE LAB OUTSIDE LAB (SEE SCANNED REPORT) PROTEIN, UA-OUTSIDE LAB NEGATIVE NEGATIVE OUTSIDE LAB (SEE SCANNED REPORT) HEMOGLOBIN-OUTSI DE LAB 13.6 12.0 - 16.0 G/DL OUTSIDE LAB (SEE SCANNED REPORT) 05/17/2023 Bob Alvarez DO LABORATORY OUTSIDE LAB (SEE SCANNED REPORT) * XR CHEST 2 VIEWS (05/17/2023) Anatomical Region Laterality Modality Chest Other 05/17/2023 Bob Alvarez DO RADIOLOGY (RAD GENER AL) documented in this encounter Care Teams [employer] Relationship Specialty Start Date End Date Dakotah Ragsdale MD [address] [place] [address] PCP - General Internal Medicine 04/06/23 documented as of this encounter
--- OUTSIDE RECORDS SUMMARY | 2023-06-01 05:13 | External Medical Summary | Summary of Care ---
Author Name Unknown Organization [facility] Address [address] [place] [address] Phone [phone] Care Team Providers Care Drill Rig Operator Helper Name Role Phone Dakotah Ragsdale MD Primary Care Provider + Reason for Visit * Reason Comments Physical-Exam Pre op visit for latha e surgery. Pt denied any new concerns. * Evaluate & Treat - Unlimited Visits (Within 30 days (routine)) - Pending Review Specialty Diagnoses / Procedures Referred By Shahid larsen Referred To Contact Orthopaedic Surgery / Orthopedics Diagnoses Chronic pain of right knee Dakotah Ragsdale MD [address] [place] [address] [place] [address] Referral ID Status Reason Start Date Expiration Date Visits Requested Visits Authorized [id number] Pending Review Specialty Services Required 04/06/[phone] Encounter Details Date Type Department Care Team (Latest Contact Info) Description 05/18/2023 9:20 AM EST Office Visit General Internal Medicine [facility] [place] [address] [place] [address] Luann Maxwell MD [address] [place] [address] [place] [id number] Preoperative general physical examination*; Primary osteoarthritis of one knee, right; Status post total left knee replacement; Prediabetes; Mixed hyperlipidemia; Obesity, Class III, BMI 40-49.9 (morbid obesity) ([facility]); First degree AV block Allergies No known active allergiesdocumented as of this encounter (statuses as of 05/18/2023) Medications Medication Sig Dispensed Refills Start Date [...] as of this encounter (statuses as of 05/18/2023) Active Problems Problem Noted Date Diagnosed Date Obesity, Class III, BMI 40-49.9 (morbid obesity) 08/21/2021 Prediabetes 03/25/2020 Overview: Per Prediabetes protocol Status post total left knee replacement 04/19/19 18 Mixed hyperlipidemia 09/08/2012 documented as of this encounter (statuses as of 05/18/2023) Resolved Problems Problem Noted Date Diagnosed Date Resolved Date Status post total bilateral knee replacement 8 05/18/2017 Osteoarthritis of left knee 02/24/2017 04/06/2023 Benign neoplasm of colon 08/12/2006 Overview: repeat colonoscopy in 5 years documented as of this encounter (statuses as of 05/18/2023) Immunizations Name Administration Dates Next Due Pneumococcal [...] Date Smoking Tobacco: Never Smokeless Tobacco: Never Tobacco Cessation:Counseling Given: Not Answered Alcohol Use Standard Drinks/Week Comments No 0 [...] on file documented as of this encounter Last Filed Vital Signs Vital Sign Reading Time Taken Comments Blood Pressure 124/70 05/18/2023 9:28 AM EST Pulse 69 05/18/2023 9:28 AM EST Temperature 37.2 C (98.9 F) 05/18/2023 9:28 AM ES T Respiratory Rate - - Oxygen Saturation 97% 05/18/2023 9:28 AM EST Inhaled Oxygen Concentration - - Weight 101.4 kg (223 lb 9.6 oz) 05/18/2023 9:28 AM EST Height 158.1 cm (5' 2.25") 05/18/2023 9:28 AM ES T Body Mass Index 40.57 05/18/2023 9:28 AM EST documented in this encounter Progress Notes * Luann Maxwell MD - 05/18/2023 9:50 AM EST SUBJECTIVE: Dagmar Hoyos is a 72 year old female. Chief Complaint Patient presents with Physical-Exam Pre op visit for knee surgery. Pt denied any new concerns. HPI: Patient presents Is being seen for preoperative evaluation at the request of Procedure and Date of surgery: Rt TKR 06/01/23. I have reviewed the patient's medications and allergies, past medical, surgical, social and family history, updating these as appropriate. See Histories section of the electronic medical record for adisplay of this information. Wt Readings from Last 6 Encounters: 05/18/23 101.4 kg (223 lb 9.6 oz) 04/06/23 100.8 kg (222 lb 3.2 oz) 08/25/22 103.6 kg (228 lb 4.8 oz) 02/23/22 102.2 kg (225 lb 4.8 oz) 08/21/21 103.6 kg (228 lb 6.4 oz) 05/29/21 102.2 kg (225 lb 4.8 oz) BP Readings from Last 6 Encounters: 05/18/23 124/70 04/06/23 128/78 08/25/22 130/76 02/23/22 132/80 08/21/21 128/82 05/29/21 130/72 Past medical history -prediabetes, mixed hyperlipidemia, obesity, history of left knee replacement in 2018. States had preoperative workup done at the hospital yesterday, copies obtained -labs -normal CBC, coags, BMP, A1c 6.2%, albumin 4, UA negative. Chest x-ray - no acute findings. EKG -NSR at 70 to bpm ., first-degree AV block, unchanged from prior EKG 02/23/2017 Constitutional: no weight loss, no weakness and no fatigue Eyes: no worsening of vision ENT: no hearing loss, no congestion, no runny nose, no sore throat, no tinnitus. No dental problems Sleep ROS:+no snoring,no apnoea/xs daytime sleepiness. Resp: no cough, no sputum, no wheezing, no SOB and no hemoptysis Cardiac: no chest pain, no orthopnea, no dyspnea on exertion, no PND, no edema, no claudication andno palpitations GI: no pain, no heartburn, no diarrhea, no constipation, no blood/melena, no nausea, no vomiting Musculoskeletal: no other significant pain. : no dysuria, no incontinence Neuro: no weakness, no falling, no numbness or tingling and no vertigo Heme: no fever, no chills, no sweats, no bleeding/bruising, no weight loss and no swollen nodes Endo: no unplanned weight change, no excessive thirst and no excessive urination Skin: no rash, no itching Immunization History Administered Date(s) Administered Pneumococcal Conjugate Vacc, 13 Valent (Prevnar) 10/11/2018 Pneumococcal Polysaccharide PPV23 (Pneumovax) 12/14/2016 Season Influenza, Quad, PF, Adjuvanted, 65+ Yrs, IM (FLUAD) 12/26/2019 Seasonal Influenza, PF, 6 M & above, IM , (FluLaval or Fluzone) 12/14/2016, 11/22/2017 Seasonal Influenza, Quadrivalent Hd (Fluzone Hd) 02/19/2021, 02/23/2022 Seasonal Influenza, Quadrivalent, No Preserve, IM 12/18/2014 Seasonal Influenza, Split, IIV3, With Preserve, Inj 11/20/2013 Seasonal Influenza, Trivalent, Adjuvanted, 65+ yrs 02/14/2019 TDAP (age 10 and older)(Boostrix) 03/11/2019 TDAP (age 11 and older)(Adacel) 01/24/2009 Varicella Zoster Vaccine (Adult) 09/18/2013 Zoster Vaccine Recombinant (Shingrix) 07/12/2018, 10/11/2018 Hemoglobin AIC Results: Lab Results Component Value Date/Time HEMOGLOBIN A1C - [facility] 6.2 (H) 04/06/2023 10:13 AM HEMOGLOBIN A1C - [facility] 6.3 (H) 08/21/2022 08:41 AM HEMOGLOBIN A1C - [facility] 6.0 (H) 02/23/2022 10:25 AM HEMOGLOBIN A1C - [facility] 6.1 (H) 03/05/2020 12:49 PM Results for orders placed or performed in visit on 04/06/23 COMPREHENSIVE METABOLIC PANEL Result Value Ref Range BUN 14 6 - 20 mg/dL Creatinine 0.9 0.5 - 1.0 mg/dL Estimated Glomerular Filtration Rate 70 >=60 mL/min Sodium 142 135 - 146 mmol/L Potassium 4.4 3.5 - 5.1 mmol/L Chloride 105 98 - 107 mmol/L CO2 26 22 - 32 mmol/L Anion Gap 11 7 - 15 mmol/L Glucose 119 70 - 120 mg/dL Albumin 4.2 3.8 - 5.0 g/dL AST 18 10 - 35 U/L Alkaline Phosphatase 81 35 - 130 U/L Bilirubin, Total 0.7 <=1.2 mg/dL Calcium 9.7 8.4 - 10.2 mg/dL Protein 6.6 6.0 - 8.3 g/dL ALT 26 10 - 35 U/L LIPID PANEL WITH DIRECT LDL IF TG IS HIGH Result Value Ref Range Triglycerides 102 <=174 mg/dL Cholesterol 147 <200 mg/dL HDL Cholesterol 39 (L) >49 mg/dL Non-HDL Cholesterol 108 <=159 mg/dL LDL Cholesterol 88 <=129 mg/dL HEMOGLOBIN A1C Result Value Ref Range Hemoglobin A1C 6.2 (H) 4.0 - 5.6 % Estimated Average Glucose 131 (H) <126 mg/dL CBC Result Value Ref Range WBC 6.94 4.00 - 10.80 K/uL RBC 4.85 3.85 - 5.15 M/uL HGB 14.0 12.0 - 15.3 g/dL HCT 42.9 36.0 - 45.2 % MCV 88.5 81.5 - 97.5 fL MCH 28.9 27.0 - 34.0 pg MCHC 32.6 32.0 - 36.0 g/dL RDW 14.4 11.5 - 15.5 % PLT 219 140 - 400 K/uL MPV 9.3 6.6 - 11.1 fL Patient Active Problem List Diagnosis Code Mixed hyperlipidemia E78.2 Status post total left knee replacement Z96.652 Prediabetes R73.03 Obesity, Class III, BMI 40-49.9 (morbid obesity) ([facility]) E66.01 Current Outpatient Medications Medication Sig Dispense Refill ASPIRIN 81 MG PO TABS one pill each day Calcium-Vitamin D 500-125 MG-UNIT TABS Take 1 Tab by mouth daily. Atorvastatin Calcium 20 MG Oral Tablet (Lipitor) Take 1 Tablet by mouth in the morning. 90 Tablet 3 amoxicillin (AMOXIL) 500 MG Capsule take 4 tablets by mouth 1 hour prior to procedure (Patient not taking: Reported on 04/06/2023) 0 No current facility-administered medications for this visit. Past Medical History: Diagnosis Date Benign neoplasm of colon 08/12/2006 repeat colonoscopy in 5 years Benign neoplasm of colon 12/14/2011 repeat colonoscopy in 5 years adenomatous polyp Hyperlipidemia with target LDL less than 160 09/08/2012 Joint pain, knee Osteoarthritis Osteoarthritis of left knee Prediabetes Past Surgical History: Procedure Laterality Date ARTHROPLASTY KNEE TOTAL Left 03/23/2017 Dr. Alvarez CARPAL TUNNEL SURGERY COLONOSCOPY W/ BIOPSY (RECTUM) 08/12/06 path-adenomatous repeat in 5 years. COLONOSCOPY, DIAGNOSTIC (RECTUM) 12/14/2011 repeat colonoscopy in 5 years adenomatous polyps COLONOSCOPY, DIAGNOSTIC (RECTUM) 01/18/2017 adenomatous polyp, repeat 5 yrs/COLONOSCOPY FLEXIBLE PROXIMAL DIAGNOSTIC performed by Aristides Veloz MD at [facility] KNEE ARTHROSCOPY, DIAGNOSTIC Right Review of patient's allergies indicates: No Known Allergies Family History Problem Relation Age of Onset Arthritis Mother Heart Disorder Mother 97 DC Heart Disorder Father 73 AAA rupture Social History Tobacco Use Smoking status: Never Smokeless tobacco: Never Vaping Use Vaping Use: Never used Substance Use Topics Alcohol use: No Drug use: No OBJECTIVE: BP 124/70 | Pulse 69 | Temp 37.2 C (98.9 F) (Tympanic) | Ht 1.581 m (5' 2.25") | Wt 101.4 kg (223 lb 9.6 oz) | SpO2 97% | BMI 40.57 kg/m | BSA 2.11 m PHYSICAL EXAM: General: alert, healthy, no distress, well nourished and well developed Head: Normocephalic, atraumatic Eye Exam: PERRLA, EOMI, Conjunctiva are pink and non-injected, sclera clear Ears: External ears normal, Canal clear, TM nml (has bishop CONN) Nose: no mucosal erythema, no mucosal edema, no purulent discharge Oropharynx: no exudate and no erythema, no sig narrowing op Neck: supple, no adenopathy, no JVD, thyroid normal size, non-tender, without nodularity Lymph: No palpable lymphadenopathy. Heart: regular Rhythm and rate, no murmurs. Lungs: lungs clear to auscultation Abdomen: soft, non-tender, normal bowel sounds, no masses or organomegaly, no bruits Extremities: no edema, no clubbing, no cyanosis Neuro Exam: alert & oriented x 3 with fluent speech, no focal motor deficits, gait normal Skin: skin color, texture, turgor are normal, no rashes , xle skin tags, SK neck ASSESSMENT/PLAN: Preoperative general physical examination (Primary) Primary osteoarthritis of one knee, right Status post total left knee replacement Prediabetes Mixed hyperlipidemia Obesity, Class III, BMI 40-49.9 (morbid obesity) (HCC) First degree AV block Unchanged from 2017 Patient is at low risk For perioperative cardiac event and may undergo the proposed surgery under noninvasive cardiac monitoring. DVT prophylaxis per surgeon. Ct low carb , low chol diet Follow Up: Return if symptoms worsen or fail to improve. Cc - referring provider.. (This note was completed using the dictation program Fluency Direct. As such, there may be misspellings, word substitutions, or other variations that should not change the essence of the clinical content of this encounter note. If there is need for further clarification, please direct questions to the provider listed above.) Patient and / caregiver verbalize understanding of above instructions and agrees with plan of care. Luann Maxwell MD 05/18/2023 documented in this encounter Nursing Notes * Leslie Rojas MED ASSIST - 05/18/2023 9:30 AM EST Chief Complaint Patient presents with Physical-Exam Pre op visit for knee surgery. Pt denied any new concerns. documented in this encounter Plan of Treatment Upcoming Encounters Date Type Department Care Team (Late st Contact Info) Description 10/05/2023 2:20 PM EDT Office Visit General Internal Medicine [facility] [address] [facility] [place] [address] Dakotha Ragsdale MD [address] [place] [address] Scheduled Procedures Name Priority Associated Diagnoses Date/Ti me COLONOSCOPY FLEXIBLE PROXIMAL DIAGNOSTIC Recall History of colon polyps Scheduled Referrals Name Type Priority Associated Diagnoses Order Schedule ORTHOPAEDICS REFERRAL OP Referral Within 30 days (routine) Chronic pain of right knee Ordered: 04/06/2023 Health Maintenance Due Date Last Done Comments COLONOSCOPY-EVERY 5 YRS AGES 18-100 01/18/2022 01/18/2017, 01/18/2017, 12/16/2011, Additional history exists COVID-19 Vaccine ( season) 2022 Influenza Vaccine (FLU shot) (#1) 2022 02/23/2022, 02/19/2021, 12/26/2019, Additional history exists Depression Screening 08/26/2023 08/25/2022 DXA Scan 01/12/2024 01/11/2017 HbA1c 04/06/2024 04/06/2023, 06/0 11/2022, 02/23/2022, Additional history exists Mammogram 04/13/2024 04/13/2023, 03/15, 03/05/2020, Additional history exists Lipid Panel 04/06/2028 04/06/2023, 06/0 11/2022, 02/23/2022, Additional history exists DTaP,Tdap,and Td Vaccines [...] Not on filedocumented as of this encounter Visit Diagnoses Diagnosis Preoperative general physical examination- Primary Other specified pre-operative examination Primary osteoarthritis of one knee, right Status post total left knee replacement Prediabetes Other abnormal glucose Mixed hyperlipidemia Obesity, Class III, BMI 40-49.9 (morbid obesity) (HCC) Morbid obesity First degree AV block First degree atrioventricular block documented in this encounter Care Teams Drill Rig Operator Helper Relationship Specialty Start Date End Date Dakotah Ragsdale MD [address] [facility] [place] [address] PCP - General Internal Medicine 04/06/23 documented as of this encounter
--- OUTSIDE RECORDS SUMMARY | 2023-06-01 05:13 | External Medical Summary | Summary of Care ---
Author Name Unknown Organization [facility] Address [address] [place] [address] Phone [phone] Care Team Providers Care Estate Administrator Name Role Phone Dakotah Ragsdale MD Primary Care Provider + Encounter Details Date Type Department Care Team (Late st Contact Info) Description 05/17/2023 Result Scan Unspecified Department <No scans attached> Allergies No known active allergiesdocumented as of [...] PM EDT Office Visit General Internal Medicine [facility] [address] [place] [address] Dakotah Ragsdale MD [address] [place] [id number] Scheduled Procedures Name Priority Associated Diagnoses Date/Ti me COLONOSCOPY FLEXIBLE PROXIMAL DIAGNOSTIC Recall History of colon polyps Health Maintenance Due Date Last Done Comments COLONOSCOPY-EVERY 5 YRS AGES 18-100 01/18/2022 01/18/2017, 01/18/2017, 12/16/2011, Additional history exists COVID-19 Vaccine (2022- season) 2022 Influenza Vaccine (FLU shot) (#1) 2022 02/23/2022, 02/19/2021, 12/26/2019, Additional history exists Depression Screening 08/26/2023 08/25/2022 DXA Scan 01/12/2024 01/11/2017 HbA1c 04/06/2024 05/17/2023, 03/16, 08/21/2022, Additional history exists Mammogram 04/13/2024 04/13/2023, 03/15, 03/05/2020, Additional history exists Lipid Panel 04/06/2028 04/06/2023, 11/2022, 02/23/2022, Additional history exists DTaP,Tdap,and Td [...] Procedure Name Priority Date/Time Associated Diagnosis Comments EKG SCANNED RESULT 05/17/2023 documented in this encounter Results * EKG SCANNED RESULT (05/17/2023) 05/17/2023 No Physician Data Unknown EKG documented in this encounter Care Teams Estate Administrator Relationship Specialty Start Date End Date Dakotah Ragsdale MD [address] [facility] [place] [address] PCP - General Internal Medicine 04/06/23 documented as of this encounter
[2023-06-01] MEDS: LR 500ML BOLUS, THEN 15ML/HR IV SCH (05:43)
[2023-06-01] MEDS: LR 60ML/HR IV SCH (05:43)
[2023-06-01] MEDS: FAMOTIDINE 20 MG TAB PO SCH (05:47)
[2023-06-01] MEDS: METOCLOPRAMIDE HCL 10 MG TABLET PO SCH (05:47)
[2023-06-01] MEDS: CeleBREX 200 MG CAP PO SCH (05:47)
[2023-06-01] MEDS: dexAMETHasone**PF** 10 MG/ML VIAL IV SCH (05:47)
[2023-06-01] MEDS: ACETAMINOPHEN 500 MG TAB PO SCH ×2 (05:47→13:47)
[2023-06-01] MEDS: GABAPENTIN 300 MG CAP PO SCH (05:47)
[2023-06-01] MEDS ORDERED: BUPIVACAINE 0.5 % 5 MG/1 ML PF 10ML VIAL ONE (06:15)
[2023-06-01] MEDS ORDERED: BUPIVACAINE 0.25% PF 30 ML VIAL ONE (06:16)
[2023-06-01] MEDS ORDERED: ONDANSETRON INJ 2 MG/ML 2 ML VIAL ONE (06:41)
[2023-06-01] MEDS ORDERED: MIDAZOLAM HCL 1 MG/ML 2ML VIAL ONE (06:41)
[2023-06-01] MEDS ORDERED: PROPOFOL IV EMULSION 10 MG/ML 20 ML VIAL IV ONE (06:41)
[2023-06-01] MEDS ORDERED: PHENYLEPHRINE 100MCG/ML 10ML SYR IV ONE (06:41)
[2023-06-01] MEDS ORDERED: ONDANSETRON INJ 2 MG/ML 2 ML VIAL IV PRN ×2 (06:54→10:32)
[2023-06-01] MEDS ORDERED: fentaNYL citrate PF 100 MCG/2 ML VIAL IV PRN (06:54)
[2023-06-01] MEDS ORDERED: ATROPINE SULFATE 0.1 MG/ML 10ML SYR IV PRN (06:54)
[2023-06-01] MEDS ORDERED: ePHEDrine sulfate 50 MG/ML AMP IV PRN (06:54)
[2023-06-01] MEDS ORDERED: PROMETHAZINE HCL 6.25 MG in SODIUM CHLORIDE 0.9% 50 ML IV PRN (06:54)
[2023-06-01] MEDS: TRANEXAMIC ACID 1,000 MG **IV Pre-op IV SCH (07:06)
--- NOTE | 2023-06-01 07:09 | History & Physical Bridge Note ---
Date of Service June 01, 2023 History & Physical Bridge Note I have examined the patient, reviewed the History & Physical and in the interval since the performance of the History & Physical I have noted the following changes of clinical significance: no changes noted
[2023-06-01] MEDS: ceFAZolin 2000MG 2,000 MG/15 ML SYR IV SCH ×2 (07:15→17:02)
[2023-06-01] MEDS: ORTHO JOINT ANESTHETIC ONE (08:02)
[2023-06-01] MEDS: TRANEXAMIC ACID 1,000 MG **IV Intra-op IV SCH (08:28)
--- NOTE | 2023-06-01 08:32 | Operative Report ---
Post Operative Report Pre & Post Diagnosis Operation Date: 06/01/23 07:15 Pre-Op Diagnosis: Osteoarthritis of Right Knee Post-Op Diagnosis: Osteoarthritis of Right Knee I identified the patient and participated in the time-out.: Yes Procedure Operation Date: 06/01/23 07:15 Actual Procedures p Right Total Knee Arthroplasty(Right)Utilizing [employer] journey 2 patient-matched total knee arthroplasty size femur 5 tibia 4 poly 11 patella 32 kulwinder - Bob Alvarez DO Surgeon Bob Alvarez DO [employer] Administrator Yaw PEREZ Estimated Blood Loss 5 Findings Consistent with Post-Op Diagnosis Patient presents with severe end-stage tricompartmental DJD eburnated [id number] subchondral cystic changes marginal osteophytes moderate to large effusion Specimens Bone and cartilage Drains Medium bore Hemovac Anesthesia Type MAC Spinal Regional Complications none Disposition Accompanied Patient To Recovery: No Disposition: Recovery Room Indications Patient presents with severe end-stage tricompartmental degenerative joint disease failing attempted conservative management occluding physical therapy anti-inflammatories relative rest activity modification corticosteroid injection viscosupplementation the above intraoperative findings were noted Description of Procedure After proper prepping and draping of the Right lower extremity anterior midline incision was made over the region of the extensor extensor mechanism after meticulous hemostasis was obtained and maintained in subcutaneous tissues a medial parapatellar incision was made The patella was subluxed lateralward the medial lateral gutter were cleaned from any hypertrophic synovitis and scar tissue of the distal femoral block was placed and the distal femoral osteotomy cut was made subsequently the chamfers anterior and posterior osteotomy cuts were made utilizing the 4-in-1 block the tibia was subsequently subluxed ante riorward medial and ateral meniscal remnants were excised in their entirety remnants of the anterior and posterior cruciate ligaments were excised in their entirety excellent exposure of the proximal tibia was obtained the tibial osteotomy guide was placed on the proximal tibial osteotomy cut was made once again the knee was irrigated with copious amounts of sterile saline solution the patella was subsequently everted lateralward thickened scar tissue around the patella was removed the patella was subsequently cut utilizing a freehand technique and was drilled prepared for final preparation and placement of patella socially flexion-extension gaps were checked and the equal and symmetric trials were placed to the appropriate femoral and tibial trials with poly-spacer being placed for equal flexion and extension gaps and full range of motion including extension to 0 and flexion to 140 the trial components after having been taken to recovery range of motion was subsequently removed meticulous hemostasis was obtained and maintained subsequently a knee block injection of joint cocktail including ropivacaine 0.5% 150 mg. Bupivacaine 0.5% epinephrine 1-200,030 mL's toradol 30 mg dexamethasone 4 mg ketamine 10 mg clonidine 100 micrograms normal saline solution 30 mg was infiltrated into the soft tissues of the posterior knee medial lateral gutters and periosteal synovium special att ention was paid to protect neurovascular structures at all times subsequently trial components having been removed the knee was irrigated with sterile saline solution. debris was removed the proximal tibia was subsequently prepared and was made ready for the placement of the tibial component tibial component was also cemented and tamped into position the femoral component was subsequently placed and cemented in the position the patellar component was subsequently cemented in position because hemostasis once again obtained and maintained wound having been thoroughly irrigated with debridement and debridement lavage was performed as well as a medial parapatellar incision closed with #1 Vicryl in interrupted fashion subcutaneous was closed with #2 Vicryl skin was closed with skin clips. PA-C was necessary for prepping and drapping as well as wound closure of deep fascia Sub cutaneous tissue and skin and was necessary for the case. A sterile compressive dressing was placed patient was taken to recovery in stable condition of report dictated by Antonio I attest to the content of the Intraoperative Record and any orders documented therein. Any exceptions are noted below.Due to the complex nature of the procedure, the entire surgery was performed with the operational assistance of [place]. The title i instructional assistant, under direct supervision, was involved in the actual performance of all aspects of the surgical procedure including hemostasis, tissue retraction and incision, instrument management, patient positioning, and wound closure. I attest to the content of the Intraoperative Record and any orders documented therein. Any exceptions are noted below.
[2023-06-01] MEDS: ROPIV 0.5% 246mg, Ketorolac 30mg, EPINEPHrine 0.5mg in NSS INFIL SCH (08:36)
--- NOTE | 2023-06-01 10:09 | XRay Report ---
XR knee RT 1 or 2V routine CLINICAL HISTORY: Surgical Post Op TECHNIQUE: 2 views of the right knee were obtained. Comparison: Comparison is made to knee radiograph 03/23/2017 FINDINGS: Patient is status post total knee arthroplasty with expected postsurgical changes including soft tiss ue swelling and subcutaneous emphysema. No periarticular lucency or hardware fracture is seen. IMPRESSION: Expected postoperative appearance status post placement of total knee arthroplasty. ACT 112: Negative or not required by law. Electronically signed by: Ry Trevino M.D. 06/01/2023 10:08 AM
[2023-06-01] MEDS ORDERED: HYDROmorphone INJ 1 MG/ML SYRINGE IV PRN (10:32)
[2023-06-01] MEDS ORDERED: METOCLOPRAMIDE HCL INJ 5 MG/ML 2 ML VIAL IV PRN (10:32)
[2023-06-01] MEDS ORDERED: NALOXONE HCL 0.4 MG/1 ML VIAL/CARP IV PRN (10:32)
[2023-06-01] MEDS ORDERED: MAGNESIUM HYDROXIDE SUSP 30 ML UDC PO PRN (10:32)
[2023-06-01] MEDS ORDERED: diphenhydrAMINE Capsule 25 MG CAP PO PRN (10:32)
[2023-06-01] MEDS ORDERED: bisacodyL 10 MG SUPP PR PRN (10:32)
--- NOTE | 2023-06-01 10:42 | Anesthesiology Progress Note ---
Date of Service June 01, 2023 Anesthesia Post Procedure Vital Signs Vital Signs: Temp Pulse Pulse Resp BP Pulse Ox O2 Del Method 06/01/23 10:30 36.9 C 83 16 117/70 94 Room Air 06/01/23 10:20 36.5 C 78 18 113/84 94 Nasal Cannula 06/01/23 10:10 81 14 114/73 96 Nasal Cannula 06/01/23 10:00 82 16 127/65 95 Nasal Cannula 06/01/23 09:50 77 14 120/64 96 Room Air 06/01/23 09:40 88 20 132/63 95 Room Air 06/01/23 09:30 79 16 116/60 95 Room Air 06/01/23 09:20 79 16 111/62 93 Room Air 06/01/23 09:10 81 16 113/59 L 97 Oxymask 06/01/23 09:00 36.8 C 84 14 108/60 97 Oxymask 06/01/23 05:30 36.8 C 74 20 164/96 H 96 Room Air O2 Flow Rate 06/01/23 10:30 06/01/23 10:20 2 06/01/23 10:10 2 06/01/23 10:00 2 06/01/23 09:50 06/01/23 09:40 06/01/23 09:30 06/01/23 09:20 06/01/23 09:10 7 06/01/23 09:00 7 06/01/23 05:30 Pain Intensity Right Knee: Pain Intensity: 2 Transfer of Care Handoff Completed per policy Notes Mental Status: alert / awake / arousable and participated in evaluation Patient Amnestic to Procedure: Yes Nausea / Vomiting: adequately controlled Pain: adequately controlled Airway Patency, RR, SpO2: stable & adequate BP & HR: stable & adequate Hydration State: stable & adequate Neuraxial Anesthesia: was administered and sensory block is resolving Anesthetic Complications: no major complications apparent and Pt Satisfied with anesthetic care
[2023-06-01] MEDS: SODIUM CHLORIDE 0.9% 1,000 ML IV SCH (11:01)
[2023-06-01] MEDS: MULTIVITAMIN TAB PO SCH (12:02)
[2023-06-01] MEDS: KETOROLAC TROMETHAMINE 15 MG/ML VIAL IV SCH (12:03)
[2023-06-01] MEDS: ASPIRIN 81 MG ECTAB PO SCH (12:03)
[2023-06-01] MEDS: CALCIUM CARBONATE 1250MG TAB PO SCH (12:03)
[2023-06-01] MEDS: DOCUSATE SODIUM 100 MG CAP PO SCH (12:03)
[2023-06-01] MEDS: ATORVASTATIN 20 MG TAB PO SCH (12:03)
[2023-06-01] MEDS: SENNA 8.6 MG TAB PO SCH (20:44)
[2023-06-01] MEDS: oxyCODONE HCL IR 5 MG TAB (IMMEDIATE RELEASE) PO PRN (20:45)
[2023-06-02 06:35] LABS: BUN Creatinine Ratio 31.3 (10-20); Calcium 8.7 mg/dl (8.6-10.3); Creatinine Clr Calc Pharmacy 69.3 ml/min; Est GFR (African American) 82.2 ml/min; Est GFR (Non-African American) 70.9 ml/min; Potassium 4.3 mmol/L (3.5-5.1)
[2023-06-02 06:41] LABS: Hematocrit (blood only) 35.9 % (37.0-47.0); Hemoglobin 11.8 g/dl (12.0-16.0); Mean Corpuscular Hemoglobin 28.6 pg (25.0-34.0); Mean Corpuscular Hgb Conc 32.9 g/dL (32.0-36.0); Mean Corpuscular Volume 87.1 fL (80.0-100.0); Mean Platelet Volume 9.8 fL (9.4-12.4); Platelet Count 219 K/uL (130-400); RDW Standard Deviation 44.6 fL (36.4-46.3); Red Blood Count 4.12 M/uL (4.20-5.40); White Blood Count 17.19 K/ul (4.8-10.8)
--- NOTE | 2023-06-02 07:22 | Orthopedic Progress Note ---
Date of Service June 02, 2023 Assessment & Plan (1) History of total right knee replacement: Plan: POD #1 s/p Right TKA pt/ot dvt proph with CELESTE/SCD/ASA plan for d/c home with HHPT Admission and Anticipated Discharge Date Admission Date: June 01, 2023 Subjective POD #1 s/p Right TKA Review of Systems Constitutional: no fever, no chills and no sweats Respiratory: no cough and no dyspnea Cardiovascular: no chest pain and no dyspnea Gastrointestinal: no abdominal pain, no nausea and no vomiting Physical Exam Physical Exam: Vital Signs Temp 36.9 C 06/02/23 03:21 Pulse 61 06/02/23 03:21 Resp 16 06/02/23 03:21 BP 149/75 H 06/02/23 03:21 Pulse Ox 95 06/02/23 03:21 O2 Del Method Room Air 06/02/23 03:21 O2 Flow Rate 2 06/01/23 10:20 Intake & Output 06/01/23 06/02/23 06/02/23 18:59 06:59 18:59 Intake Total 1000 / 2000 1000 / 2000 Output Total 105 / 295 190 / 295 Balance 895 / 1705 810 / 1705 Intake: IV 200 / 1200 1000 / 1200 Lactated Ringe r's 1,000 ml @ 15 0 / 0 mls/hr IV .Q24 H JON Rx#: [id number] Sodium Chlorid e 0.9% 1,000 ml @ 1000 / 1000 100 mls/hr IV .Q10H JON Rx#: [id number] Tranexamic Aci d / 0.7% NaCl 1, 200 / 200 000 mg In 100 ml @ 600 mls/hr IV TODAY@0600 JON Rx#:[id number] IV Perioperative 800 / 800 Output: Estimated Blood Loss 5 / 5 Drain Output 100 / 290 190 / 290 Right Knee Hem ovac #1 100 / 290 190 / 290 Other: # Unmeasured Voi ds 1 1 Musculoskeletal: Right Leg: NVDI, calf SNT, negative alma rosa sign. DP palpable, able to wiggle toes/ankle movement without difficulty. dressing clean dry and intact. Results & Data Vital Signs (Past 12 Hours) Vital Signs Temp Pulse Resp BP Pulse Ox O2 Del Method 06/02/23 03:21 36.9 C 61 16 149/75 H 95 Room Air 06/01/23 23:46 36.6 C 68 18 142/81 H 94 Room Air 06/01/23 20:45 Room Air 06/01/23 20:17 36.5 C 75 15 130/77 95 Room Air Laboratory Results Laboratory Results WBC 17.19 K/ul (4.8-10.8) H 06/02/23 05:55 RBC 4.12 M/uL (4.20-5.40) L 06/02/23 05:55 Hgb 11.8 g/dl (12.0-16.0) L 06/02/23 05:55 Hct 35.9 % (37.0-47.0) L 06/02/23 05:55 MCV 87.1 fL (80.0-100.0) 06/02/23 05:55 MCH 28.6 pg (25.0-34.0) 06/02/23 05:55 MCHC 32.9 g/dL (32.0-36.0) 06/02/23 05:55 RDW Std Deviation 44.6 fL (36.4-46.3) 06/02/23 05:55 RDW Coeff of Audi 14.0 % (11.5-14.5) 06/02/23 05:55 Plt Count 219 K/uL (130-400) 06/02/23 05:55 MPV 9.8 fL (9.4-12.4) 06/02/23 05:55 Sodium 140 mmol/L (136-145) 06/02/23 05:55 Potassium 4.3 mmol/L (3.5-5.1) 06/02/23 05:55 Chloride 110 mmol/L (98-107) H 06/02/23 05:55 Carbon Dioxide 24 mmol/L (21-32) 06/02/23 05:55 Anion Gap 6 (3-11) 06/02/23 05:55 BUN 26 mg/dl (6-23) H 06/02/23 05:55 Creatinine 0.83 mg/dl (0.6-1.2) 06/02/23 05:55 Est Cr Clr Drug Dosing 69.3 ml/min 06/02/23 05:55 Est GFR ( Amer) 82.2 ml/min 06/02/23 05:55 Est GFR (Non-Af Amer) 70.9 ml/min 06/02/23 05:55 BUN/Creatinine Ratio 31.3 (10-20) H 06/02/23 05:55 Glucose 142 mg/dl (70-99(Fasting)) H 06/02/23 05:55 Calcium 8.7 mg/dl (8.6-10.3) 06/02/23 05:55 Impressions Knee X-Ray 06/01/23 08:59 XR knee RT 1 or 2V routine CLINICAL HISTORY: Surgical Post Op TECHNIQUE: 2 views of the right knee were obtained. Comparison: Comparison is made to knee radiograph 03/23/2017 FINDINGS: Patient is status post total knee arthroplasty with expected postsurgical changes including soft tissue swelling and subcutaneous emphysema. No periarticular lucency or hardware fracture is seen. IMPRESSION: Expected postoperative appearance status post placement of total knee arthrop lasty. ACT 112: Negative or not required by law. Electronically signed by: Ry Trevino M.D. 06/01/2023 10:08 AM
--- NOTE | 2023-06-02 07:26 | Discharge Summary ---
Date of Service date of discharge: June 02, 2023 date of admission: 06/01/23 Admission HPI Per Admitting Provider Dagmar is a 72-year-old female who presented for preop evaluation prior to upcoming right total knee arthroplasty. She has several year history of right knee pain which is gradually worsened and is now affecting her daily activities including walking standing using stairs. She has tried previous injections including corticosteroid and viscosupplementation with minimal improvement. She is tried oral anti-inflammatories and Tylenol as well. At this point she has failed conservative measures and wishes to proceed with a right total knee replacement Principal Diagnosis Right knee osteoarthritis Discharge Exam Vital Signs Temp 36.9 C 06/02/23 03:21 Pulse 61 06/02/23 03:21 Resp 16 06/02/23 03:21 BP 149/75 H 06/02/23 03:21 Pulse Ox 95 06/02/23 03:21 O2 Del Method Room Air 06/02/23 03:21 O2 Flow Rate 2 06/01/23 10:20 Intake & Output 06/01/23 06/02/23 06/02/23 18:59 06:59 18:59 Intake Total 1000 / 2000 1000 / 2000 Output Total 105 / 295 190 / 295 Balance 895 / 1705 810 / 1705 Intake: IV 200 / 1200 1000 / 1200 Lactated Ringer's 1,000 ml @ 15 0 / 0 mls/hr IV .Q24H JON Rx#: [id number] Sodium Chloride 0.9% 1,000 ml @ 1000 / 1000 100 mls/hr IV .Q10H JON Rx#: [id number] Tranexamic Acid / 0.7% NaCl 1, 200 / 200 000 mg In 100 ml @ 600 mls/hr IV TODAY@0600 JON Rx#:[id number] IV Perioperative 800 / 800 Output: Estimated Blood Loss 5 / 5 Drain Output 100 / 290 190 / 290 Right Knee Hemovac #1 100 / 290 190 / 290 Other: # Unmeasured Voids 1 1 Musculoskeletal Right Leg: NVDI, calf SNT, negative alma rosa sign. DP palpable, able to wiggle toes/ankle movement without difficulty. dressing clean dry and intact. Discharge Data Allergies Allergy/AdvReac Type Severity Reaction Status Date / Time No Known Allergies Allergy Verified 06/01/23 05:29 Procedures Performed Operation Date: 06/01/23 07:15 Actual Procedures p Right Total Knee Arthroplasty(Right) - Bob Hdz DO Ordered Studies 06/01/23 05:00 US - OR guided needle placemen Routine Hospital Course (1) History of total right knee replacement: POD #1 s/p Right TKA pt/ot dvt proph with CELESTE/SCD/ASA plan for d/c home with HHPT Total Time Total Time Spent Total Time Spent (In Minutes): 20 Discharge Plan Discharge Items Patient Disposition: Home - Home Health Services Reason For Visit: Osteoarthritis Knee Right Discharge Diagnosis: RIGHT TOTAL KNEE REPLACEMENT Activity: Per Instructions section Non-emergency contact: Surgeon Call non-emergency contact if: you have any medication questions, your temperature is above 101, your wound has increased redness, your wound has increased drainage and your wound pain has increased Follow-up/Referrals: Dakotah Ragsdale MD [Primary Care Provider] - Diet: Regular Addtl Attending Provider Instructions: ACTIVITY RECOMMENDATIONS: SELF CARE INSTRUCTIONS AFTER TOTAL KNEE REPLACEMENT A. You may need to continue a physical therapy program after discharge from the hospital. There are several options available to you. Your doctor will assist you in selecting the best one for you. 1. An out-patient facility 2 to 3 times a week for therapy or home therapy. 2. Continue working on all exercises taught to you in the hospital. Your goals should be to increase bending of your knee to 90 degrees and beyond and to fully straighten your knee. B. You may progress at your own pace from walking with a walker or crutches to a cane; then to no assistive devices. C. Make walking a part of your daily routine. Be up as much as comfortable with rest periods throughout the day. Rest with leg elevation is very important. Use the ice wrap frequently for the first 3-4 weeks. D. There are no restrictions on activities. You may ride in a car, shop, participate in ingredient mixer and all social activities. E. Wear the long elastic stockings (CELESTE hose) 20 hours a day for 2 weeks after surgery. They can be removed several times a day for laundering and for a bath. F. You may shower, no tub baths until cleared by your doctor. SPECIAL CARE INSTRUCTIONS: VERY IMPORTANT TO READ AND REVIEW A. There are a few signs you need to watch for after you are home. Call [facility] if you notice any of the followin. Increased severe knee pain. Some pain is expected especially when you exercise. 2. Increased swelling in your leg or knee; pain or swelling of the calf muscle in either lower leg. 3. Any fluid drainage from the incision. 4. Shortness of breath or chest pain. B. Please call [facility] at if you have any concerns or questions about your operation or recovery. The doctor or his nurse will return your call promptly. C. You must take antibiotics before dental work, bladder, bowel or other [place]. Your doctor will provide you with a permanent care to carry describing this precaution. IMPORTANT: * REMEMBER TO TAKE ASPIRIN, 81 MG, TWICE DAILY FOR 4 WEEKS UNLESS OTHERWISE DIRECTED. THIS IS YOUR BLOOD THINNER. * HIGH RISK PATIENTS MAY BE PRESCRIBED A STRONGER BLOOD THINNER. THIS WILL BE PROVIDED AT DISCHARGE. * CALL IF INCREASED PAIN, REDNESS, DRAINAGE OR FEVER GREATER THAT 101. * WEAR CELESTE HOSE 20 HOURS PER DAY FOR 2 WEEKS. DRESSING INSTRUCTIONS * ALIE Dressing- This is a large suction dressing covering your incision. This will help pull any excess drainage from the wound and allow your incision to heal properly. You may shower with this if you can keep the unit outside of the shower. If any bleeding or leakage is noted please call your doctor's office. This will remain on your incision for 7 days and then should be removed. This can be done yourself or by the home nursing staff if applicable. The entire unit is disposable once removed. Once removed, keep incision clean and dry. If redness or drainage is noted, please call your surgeon. ONCE ALIE IS REMOVED, FOLLOW THESE INSTRUCTIONS: DERMABOND Prineo- This is a mesh tape dressing that is covered with glue. It should remain in place until the incision is properly healed, usually 10-14 days. This dressing is designed to naturally slough off. You may trim the excess mesh tape as it peels off. Incision may be briefly wet in a shower. Dry immediately by blotting with a clean, dry towel. Do not bath or swim until instructed by your doctor. Do not scratch, rub, or pick at the dressing. Do not apply any topical ointments or lotions until dressing is completely removed and/or instructed by your doctor. There may be a small piece of suture material at one end of your incision. Do not pull or trim this. If it is bothersome or catching on clothing, you may cover it with a band-aid. IF INCISION IS LEAKING THROUGH DRESSING, CALL THE OFFICE . FOLLOW UP VISIT: If appointment is not already scheduled: Please call [facility] to make a follow-up appointment for 2 weeks after your surgery at . Pending Studies at Discharge: No Stand-Alone Forms: My [facility] Medications and DC Order Prescriptions: New acetaminophen 500 mg tablet 1,000 mg PO Q8 21 Days Qty: 126 0RF aspirin 81 mg tablet,delayed release (DR/EC) 81 mg PO BID 30 Days Qty: 60 0RF celecoxib [Celebrex] 200 mg capsule 200 mg PO BID 30 Days Qty: 60 0RF cefadroxil 500 mg capsule 500 mg PO BID 14 Days Qty: 28 0RF docusate sodium 100 mg Capsule 100 mg PO BID Qty: 20 0RF oxycodone 5 mg tablet 5 - 10 mg PO Q6H PRN (Reason: pain) Qty: 30 0RF Rx Instructions: ongoing therapy, supervising dr drea hdz. max 6 tabs in 24 hours. date of surgery 06/01/23 Continued atorvastatin 20 mg Tablet 20 mg PO QAM calcium carbonate [Caltrate 600] 600 mg calcium (1,500 mg) Tablet 600 mg PO QAM Discontinued aspirin 81 mg Capsule 81 mg PO QAM Admission Data Admit Date/Time: 06/01/23 08:59 Attending Provider: Bob Hdz Admit Provider: Bob Hdz Primary Care Provider: Dakotah Ragsdale
[2023-06-02] MEDS: CeleBREX 200 MG CAP PO SCH (08:15)
== END 2023-06-02 10:24 | disposition home health service (06) ==
LOC: 3E 05:07 → ASU 05:07